=== PATIENT | female | born 1960 ===

== ENCOUNTER → 2023-07-31 11:30 | Outpatient (BNV) | payer OTHER, SELFPAY | PROVIDERS: Visit Provider Psychiatry & Neurology Psychiatry | DX: F32.9 Major depressive disorder, single episode, unspecified (principal) | CPT/HCPCS: 90792; 99213 ==

== ENCOUNTER 2023-08-15 10:45 | Outpatient (RCR) | payer OTHER, SELFPAY ==
--- NOTE | 2023-07-31 10:51 | HO.PS.ADMBH ---
HPI Date of Service: 07/31/23 Chief Complaint: MDD,ROSELIA Sources of Information: patient interviewed and chart reviewed Additional Sources of Information: Self-referred to [facility] hospital program. Diagnosis of major depression with psychosis and anxiety disorder. Has been receiving ECT treatments on a maintenance basis every 2 weeks and will be getting next scheduled session on 08/01/2023. Overall would like to learn new coping skills in particular for anxiety. Reports currently her mood overall has been positive. Does have anxiety symptoms, feeling restless and worries that when those things escalates they can lead to feeling very depressed. Social situations can be triggers for anxiety. Sleep has been okay. Energy and appetite okay. Very clear she is not suicidal. No agitation or psychosis. No substance issues. Medications include Lamictal 75 mg twice daily, Cymbalta 60 mg at bedtime, Remeron 15 mg at bedtime, Wellbutrin 75 mg at bedtime, trazodone 25 mg as needed at bedtime, clonidine 0.2 mg as needed. Risperdal was recently discontinued and Wellbutrin started 1 month ago. Prescriber is through primary care practice, [employer] Luis Ramos. Gets ECT every 2 weeks [address] [facility] DR. Patricio Bowser. Clarified past psychiatric history includes 3 inpatient episodes and the most recent in March 2022 at [facility] when ECT was reinitiated for severe depression. Had a overdose attempt prior to this. First received ECT at age 19 and reports not having any since that up until last year. Does have a history of some paranoia when depressed. We did explore potential for manic symptoms and does have some short periods of increased speech, more excitable, saying things she normally would not and being more productive. Also acknowledges at baseline she has a very productive active person. We did clarify that she does not have periods of high energy despite decreased sleep. Socially, born and raised in [place]. Living with her of 35 years. 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 Enjoys taking trips in their RV when she is feeling well. Oldest daughter speech and language therapist and younger daughter is a PA school. Helps care for her 7-month-old grandson and her younger daughter dog when she is at clinical rotations. Enjoys gardening, cleaning, exercising. No legal issues. No substance issues. HPI Healthcare Proxy: No Guardianship: No Medical Problems Affecting Mental Status: No Past Psychiatric History: Medications include Lamictal 75 mg twice daily, Cymbalta 60 mg at bedtime, Remeron 15 mg at bedtime, Wellbutrin 75 mg at bedtime, trazodone 25 mg as needed at bedtime, clonidine 0.2 mg as needed. Risperdal was recently discontinued and Wellbutrin started 1 month ago. Prescriber is through primary care practice, [employer]NATIONAL MARKETING COORDINATOR Luis Ramos. Gets ECT every 2 weeks [address] [facility] DR. Patricio Bowser. Clarified past psychiatric history includes 3 inpatient episodes and the most recent in March 2022 at [facility] when ECT was reinitiated for severe depression. Had a overdose attempt prior to this. First received ECT at age 19 and reports not having any since that up until last year. Does have a history of some paranoia when depressed. We did explore potential for manic symptoms and does have some short periods of increased speech, more excitable, saying things she normally would not and being more productive. Also acknowledges at baseline she has a very productive active person. We did clarify that she does not have periods of high energy despite decreased sleep. [facility] Medical History (Updated 07/31/23 @ 13:30 by Tam Mock MD) Ovarian cyst Hypertension Osteoporosis Hypothyroidism Hyperlipidemia Surgical History (Updated 07/31/23 @ 11:48 by Yanna Molina RN) History of tonsillectomy Social History: born and raised in [place]. Living with her of 35 years. 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 Enjoys taking trips in their RV when she is feeling well. Oldest daughter speech and language therapist and younger daughter is a PA school. Helps care for her 7-month-old grandson and her younger daughter dog when she is at clinical rotations. Enjoys gardening, cleaning, exercising. No legal issues. No substance issues. Substance History: none Trauma History: hearing siblings being physically disciplined Meds/Allergies Meds Home Medications Medication Instructions Recorded Confirmed Type atorvastatin 10 mg tablet 10 mg PO DAILY 07/31/23 07/31/23 History duloxetine 60 mg capsule,delayed 60 mg PO DAILY 07/31/23 07/31/23 History release lamotrigine 150 mg tablet 75 mg PO BID 07/31/23 07/31/23 History levothyroxine 75 mcg tablet 75 mcg PO DAILY 07/31/23 07/31/23 History verapamil 180 mg tablet,extended 180 mg PO DAILY 07/31/23 07/31/23 History release Allergies Allergies Allergy/AdvReac Type Severity Reaction Status Date / Time No Known Allergies Allergy Verified 07/31/23 11:48 Mental Status Exam Mental Status Exam Narrative: Pleasant. Engaged. Well presented. Organized and articulate. Euthymic. No SI. No HI. No agitation. No psychosis. Insight and judgment good Telehealth Telehealth Location of provider rendering services: other ([place]) Location of patient: other ([facility]) Patient Identification confirmed using: Name, : Yes Telehealth method: video Patient verbally consented to treatment: Yes Minutes spent on Phone/Video with Pt.: 25 Assessment & Plan Assessment & Plan (1) Major depression: Status: Diagnosis Status: Acute Code(s): F32.9 - Major depressive disorder, single episode, unspecified Assessment and Plan: Presents with clear history of major depression and at times with psychosis. Doing well with the ECT maintenance. Current medication regimen stable. At baseline is high functioning. Engaging with partial hospital program around nonmedication approaches for anxiety and functioning. No med changes indicated. No further psychiatrist/med provider follow-up required while at partial hospital program, unless patient or staff request same. Does not need medication prescriptions. Has established providers in the community and will continue ECT maintenance after discharge. Patient in agreement with the evaluation. Patient educated on: medication risk/benefits and therapeutic strategies Informed Consent: understands Reason for continued partial hosp. stay Substantial Risk for: med/psych decompensation Certification I certify that partial hospital treatment is medically necessary due to the symptoms and problems resulting from the patient's mental illness and the failure to treat the patient at the partial hospital level of care would likely result in the patient requiring inpatient psychiatric care which could not be prevented at a less intensive level of care. Time Spent With Patient Time: Total time managing care of this patient today _45___ minutes.
[2023-07-31 11:49] VITALS: BMI 20.9
[2023-07-31 11:50] VITALS: BP 112/70; PULSE 80; TEMP 37.1
--- NOTE | 2023-07-31 12:47 | PC.ADMIT ---
Patient is a 63 year old female who stated she was advised to come to [facility] by her therapist and daughters d/t severe anxiety along with depression sxs. Patient reports she has been receiving ECT about every 2 weeks. She wants to be able to manage her symptoms learning coping skills. Feels her mood fluctuates and has questioned having Bipolar disorder. She reports being put on Lamictal to help stabilize her mood. She discussed debilitating anxiety and has had to cancel visits with her family as a result. She reports he 2 daughters and are supportive. Luz presents with anxious mood and affect. She appeared frigidity during the assessment. Poor eye contact. She denied SI or thoughts to kill herself. She was given a copy of her safety plan and I reviewed this with her. She was calm and cooperative and engaged in conversation. She discussed history of overdose attempt in February stating, I couldn't sleep and called my PCP and they put me on Escitalopram and couldn't sleep still so they doubled the Escitalopram and something else. In the middle of the night I was exhausted and could not sleep and took a handful of Escitalopram and the other medication. I told my I took a handful. Intention was not to hurt myself I had no idea what it would do to me. They called my daughter and called an ambulance. She stated she was medically monitored while in the hospital. She reports she is currently sleeping 6-7 hours a night. Medications reconciled with patient and pharmacy. She stated she is taking medications as prescribed.
--- NOTE | 2023-08-02 08:28 | HO.PHP ---
The clients case was reviewed and opened in treatment team
--- NOTE | 2023-08-15 13:08 | HO.PHPPROGNO ---
Subjective Subjective Date of Service: 08/15/23 Reason For Visit: MDD,ROSELIA Healthcare Proxy: No Guardianship: No Medical Problems Affecting Mental Status: No Interim History: Paz Ernandez is seen for follow-up/discharge. She has found the [facility] hospital program extremely helpful. She reviewed her history, treatment with ECT and current medications which we reviewed. She is getting outpatient ECT about once a month now and has been getting it through [facility] and since they are closing she would like to see whether she can be referred to Dr. Arango. She will pursue that through her clinician here. She has enough of her medication and has an appointment with her outpatient provider. No changes were made. No prescriptions were sent Review of Systems Review of Systems Yes all other systems are reviewed and are negative Mental Status Exam Mental Status Exam Narrative: In today's visit she is alert, oriented and pleasant. Normal speech. Good eye contact. Affect is appropriate and varied. No signs of depression or hypomania. No signs of psychosis. Cognitively is grossly intact. No SI. Judgment is intact Diagnostics Vital Signs (24Hr): BMI result Body Mass Index 20.9 Assessment & Plan Assessment & Plan (1) Major depression: Status: Acute Code(s): F32.9 - Major depressive disorder, single episode, unspecified Plan She will be discharged today and will follow up with her outpatient providers Certification I certify that partial hospital treatment is medically necessary due to the symptoms and problems resulting from the patient's mental illness and the failure to treat the patient at the partial hospital level of care would likely result in the patient requiring inpatient psychiatric care which could not be prevented at a less intensive level of care. Total time managing care of this patient today ____ minutes. Discharge Plan Discharge Attending provider: Tramaine Dwyer Medications: No Action lamotrigine 150 mg tablet 75 mg PO BID atorvastatin 10 mg tablet 10 mg PO DAILY verapamil 180 mg tablet extended release 180 mg PO DAILY levothyroxine 75 mcg tablet 75 mcg PO DAILY duloxetine 60 mg capsule,delayed release(DR/EC) 60 mg PO DAILY trazodone 50 mg tablet 25 mg PO BEDTIME PRN (Reason: insomnia) clonidine HCl 0.2 mg tablet 0.2 mg PO DAILY PRN (Reason: anxiety attack) bupropion HCl 75 mg tablet 75 mg PO QAM Patient Comments: Patient stated this is a new medication and has taken it at night. Patient education provided. She plans on taking this medication in the morning. mirtazapine 15 mg tablet 30 mg PO BEDTIME valacyclovir 1 gram Tablet 1,000 mg PO BID PRN (Reason: Cold Sores) alendronate 70 mg tablet 70 mg PO QWEEK Stand Alone Forms: Patient Portal Discharge page Patient Education: Depression (DC), Generalized Anxiety Disorder (GEN)
--- NOTE | 2023-08-16 16:28 | HO.PHP ---
I called and left a message with the clients therapist , Sherrie PETER , re client discharge , dc plans and mental status at dc
== END 2023-08-15 23:59 | disposition home or self-care (01) ==
LOC: HO.PHPA 10:45
PROVIDERS: Visit Provider Psychiatry & Neurology Psychiatry
DX: F32.9 Major depressive disorder, single episode, unspecified (principal); Z79.899 Other long term (current) drug therapy
CPT/HCPCS: 90791; 90853